=== PATIENT | male | born 1990 | race Caucasian/White ===

== ENCOUNTER 2016-12-12 20:20 | Emergency (ER) | payer MEDICAID | END 2016-12-12 23:01 | disposition home or self-care (01) | LOC: D.ER 20:20 | DX: R22.0 Localized swelling, mass and lump, head (principal); R51 Headache; H11.32 Conjunctival hemorrhage, left eye; F17.200 Nicotine dependence, unspecified, uncomplicated ==

== ENCOUNTER 2018-11-20 19:15 | Emergency (ER) | payer SELFPAY ==
[~2018-11-20] VITALS: Ht 175.3 cm; Wt 70.5 kg
[2018-11-20 19:33] VITALS: Ht 175.3 cm; Wt 70.5 kg
[2018-11-20 20:26] LABS: BASOPHILS 0.5 % (0-2); EOSINOPHILS 2.8 % (0-7); HEMOGLOBIN 13.1 g/dL (13.5-17.5); IMMATURE GRANULOCYTES 0.2 % (0-5); LYMPHOCYTES 40.2 % (15-50); MCH 30.8 pg (26.0-34.0); MCHC 34.5 g/dL (31.0-37.0); MCV 89.2 fL (80.0-100.0); MONOCYTES 9.2 % (2-11); NEUTROPHILS 47.1 % (40-80); PLATELET COUNT 197 10x3/uL (130-400); RBC 4.26 10x6/uL (4.20-6.10); RDW 12.1 % (11.5-14.5); WBC 6.5 10x3/uL (4.8-10.8)
[2018-11-20 20:47] LABS: ALBUMIN 3.9 g/dL (3.4-5.0); ALKALINE PHOSPHATASE 99 U/L (46-116); ALT (SGPT) 48 U/L (10-68); CALC OSMOLALITY 281 mosm/kg (275-300); CALCIUM 8.3 mg/dL (8.5-10.1); CARBON DIOXIDE 27.2 mmol/L (21.0-32.0); CHLORIDE - SERUM 103 mmol/L (98-107); CREATININE - SERUM 0.8 mg/dL (0.6-1.3); GLUCOSE 135 mg/dL (74-106); POTASSIUM - SERUM 3.6 mmol/L (3.5-5.1); SODIUM 138 mmol/L (136-145); UREA NITROGEN 23 mg/dL (7-18); eGFR NON AFRICAN AMERICAN > 90 mL/min (90-120)
[2018-11-20 20:50] LABS: AMYLASE - SERUM 58 U/L (25-115); LIPASE 393 U/L (73-393)
[2018-11-20 20:51] LABS: TROPONIN-I < 0.017 ng/mL (0.000-0.060)
[2018-11-20] MEDS ORDERED: PHENERGAN25 M1 PO (20:55)
[2018-11-20 21:06] VITALS: BP 118/78
== END 2018-11-20 21:06 | disposition home or self-care (01) ==
LOC: D.ER 19:15
PROVIDERS: Family Medicine
DX: Q79.2 Exomphalos (principal); R11.10 Vomiting, unspecified